=== PATIENT | female | born 1985 | race Caucasian/White ===

== ENCOUNTER 2018-06-26 11:55 | Emergency (ER) | payer OTHER, BC ==
[~2018-06-26] VITALS: Ht 170.2 cm; Wt 65.8 kg
[2018-06-26] MEDS ORDERED: PROBIOTIC1 EAC1 PO (12:17)
[2018-06-26] MEDS ORDERED: PRENATAL 19 TA1 EAC1 PO (12:17)
== END 2018-06-26 12:41 | disposition home or self-care (01) ==
LOC: ED 11:55
DX: S61.230A Puncture wound without foreign body of right index finger without damage to nail, initial encounter (principal); W46.0XXA Contact with hypodermic needle, initial encounter; Z88.5 Allergy status to narcotic agent; Z88.1 Allergy status to other antibiotic agents; Z79.899 Other long term (current) drug therapy
CPT/HCPCS: 36415; 84460; 86703; 86707; 86803; 87350; 99283

== ENCOUNTER 2019-03-02 10:40 | Inpatient (IN) | payer BC ==
[~2019-03-02] VITALS: Ht 170.2 cm; Wt 81.0 kg
--- OUTSIDE RECORDS SUMMARY | ~2019-03-02 | XMS | Encounter Summary ---
Demographics + + + | Address | [address] | | | [place] [address] | + + + | Home Phone | | + + + | Preferred Language | Unknown | + + + | Marital Status | | + + + | Pentecostalism Affiliation | Unknown | + + + | Race | Unknown | + + + | Ethnic Group | Unknown | + + + Author + + + | Author | [facility] | | | and [place] | + + + | Organization | [facility] | | | and [place] | + + + | Address | Unknown | + + + | Phone | Unavailable | + + + Support + + +---------+ + | Name | Relationship | Address | Phone | + + +---------+ + | Augusto Hinds | ECON | Unknown | | + + +---------+ + Care Team Providers + +------+ + | Care Pastoral Worker Name | Role | Phone | + +------+ + PCP | Unavailable | + +------+ + Encounter Details +--------+ + + + + | Date | Type | Department | Care Team | Description | +--------+ + + + + | 10/05/ | Hospital | [facility] | Camelia Olivarez | | | 2016 | Encounter | HOSPITAL PATHOLOGY | MD Destinee [address] | | | | | [address] | [facility] | | | | | [place] | [place] [address] | | | | | [address] | [phone] | | | | | [phone] | | | +--------+ + + + + Social History + +-------+ +--------+------+ | Tobacco Use | Types | Packs/Day | Years | Date | | | | | Used | | + +-------+ +--------+------+ | Never Assessed | | | | | + +-------+ +--------+------+ + + + | Sex Assigned at | Date Recorded | | | | + + + | Not on file | | + + + + + + + | Job Start Date | Occupation | Industry | + + + + | Not on file | Not on file | Not on file | + + + + + + + + | Travel History | Travel Start | Travel End | + + + + + + | No recent travel history available. | + + documented as of this encounter Plan of Treatment Not on filedocumented as of this encounter Visit Diagnoses Not on filedocumented in this encounter"
--- OUTSIDE RECORDS SUMMARY | ~2019-03-02 | XMS | Encounter Summary ---
Demographics + + + | Address | [address] | | | [place] [address] | + + + | Home Phone | | + + + | Preferred Language | Unknown | + + + | Marital Status | | + + + | Christianity Affiliation | Unknown | + + + | Race | Unknown | + + + | Ethnic Group | Unknown | + + + Author + + + | Author | [facility] | | | and [place] | + + + | Organization | [facility] | | | and [place] | [...] Team Providers + +------+ + | Care Cylinder Inspector Name | Role | Phone | + +------+ + PCP | Unavailable | + +------+ + Encounter Details +--------+ + + + + | Date | Type | Department | Care Team | Description | +--------+ + + + + | 07/28/ | Hospital | [facility] | Alanna Kilpatrick | | | 2017 | Encounter | HOSPITAL LABORATORY | DO [address] | | | | | [address] | [address] | | | | | [place], [place] | [place], [place] | | | | | [address] | [address] | | | | | [phone] | [phone] | | | | | | | | +--------+ + + + [...]
--- OUTSIDE RECORDS SUMMARY | ~2019-03-02 | XMS | Clinical Summary ---
Demographics + + + | Address | [address] | | | [place] [address] | + + + | Home Phone | | + + + | Preferred Language | Unknown | + + + | Marital Status | | + + + | Buddhism Affiliation | Unknown | + + + | Race | Unknown | + + + | Ethnic Group | Unknown | + + + Author + + + | Author | [facility] | | | and [place] | + + + | Organization | [facility] | | | and [place] [...] Team Providers + +------+ + | Care Deputy Clerk Of Superior Court Name | Role | Phone | + +------+ + | Marvin Johnston MD | PCP | | + +------+ + Allergies Not on File Medications Not on file Active Problems Not on file Immunizations + + + + | Name | Administration Dates | Next Due | + + + + | INFLUENZA PF | 01/11/2016 | | | QUAD(PED/ADOL/ADULT) | | | | ,PSKT or VIAL | | | + + + + | TDAP, (ADOL/ADULT) | 07/13/2016 | | + + + + Social History + [...] recent travel history available. | + + Last Filed Vital Signs + + + + + | Vital Sign | Reading | Time Taken | Comments | + + + + + | Blood Pressure | 109/68 | 11/28/2016 2:40 PM | | | | | PDT | | + + + + + | Pulse | 68 | 11/28/2016 2:40 PM | | | | | PDT | | + + + + + | Temperature | 36.4 C (97.6 F) | 10/05/2016 3:02 PM | | | | | PDT | | + + + + + | Respiratory Rate | 16 | 11/28/2016 2:40 PM | | | | | PDT | | + + + + + | Oxygen Saturation | 99% | 05/27/2015 3:25 PM | | | | | PDT | | + + + + + | Inhaled Oxygen | - | - | | | Concentration | | | | + + + + + | Weight | 71.3 kg (157 lb 2.3 | 11/28/2016 2:40 PM | | | | oz) | PDT | | + + + + + | Height | 170 cm (5' 6.93") | 11/28/2016 2:40 PM | | | | | PDT | | + + + + + | Body Mass Index | 24.66 | 11/28/2016 2:40 PM | | | | | PDT | | + + + + + Plan of Treatment + + + + + | Health Maintenance | Due Date | Last Done | Comments | + + + + + | Vaccine: Influenza | | 01/11/2016 | | | (#1) | 9 | | | + + + + + | Cervical Cancer | | 09/29/2015 | | | Screening (Pap) | 1 | | | + + + + + | Vaccine: | | 07/13/2016 | | | Dtap/Tdap/Td (2 - | 7 | | | | Td) | | | | + + + + + Results Not on filefrom Last 3 Months Insurance + +--------+ +--------+ +---------+------+ | Payer | Benefi | Subscriber | Effect | Phone | Address | Type | | | t Plan | ID | yaritza | | | | | | / | | Dates | | | | | | Group | | | | | | + +--------+ +--------+ +---------+------+ | [employer] | PACIFI | [id number] | | [phone] | | PPO | | | CSOURC | | 016-Pr | 2 | | | | | E | | esent | | | | | | FIRST | | | | | | | | CHOICE | | | | | | + +--------+ +--------+ +---------+------+ + +--------+ +--------+ + + | Guarantor Name | Accoun | Relation to | Date | Phone | Billing Address | | | t Type | Patient | of | | | | | | | | | | + +--------+ +--------+ + + | Ronit Hinds | Person | Self | [birth year] | [address] [place] | | | evangelist/Philippe | | 1986 | [phone] | [place] [address] | | | paras | | | 3 (Home) | | + +--------+ +--------+ + + Advance Directives + + + + + | Type | Date Recorded | Patient | Explanation | | | | Service Bar Cashier | | + + + + + | Power of | | | | | Miner | | | | + + + + + | Advance | 07/26/2017 4:12 | | | | Directive | PM | | | + + + + +
--- OUTSIDE RECORDS SUMMARY | ~2019-03-02 | XMS | Encounter Summary ---
Demographics + + + | Address | [address] | | | [place] [address] | + + + | Home Phone | | + + + | Preferred Language | Unknown | + + + | Marital Status | | + + + | Church Affiliation | Unknown | + + + | Race | Unknown | + + + | Ethnic Group | Unknown | + + + Author + + + | Author | [facility] | | | and [place] | + + + | Organization | [facility] | | | and [place] | [...] Team Providers + +------+ + | Care Package Dye Stand Loader Name | Role | Phone | + +------+ + PCP | Unavailable | + +------+ + Encounter Details +--------+ + + + + | Date | Type | Department | Care Team | Description | +--------+ + + + + | 03/10/ | Hospital | [facility] | Liyah Miranda MD | | | 2015 | Encounter | HOSPITAL LABORATORY | [address] | | | | | [address] | [place], [place] | | | | | [place], [place] | [address] | | | | | [address] | | | | | | [phone] | | | +--------+ + + + [...]
--- OUTSIDE RECORDS SUMMARY | ~2019-03-02 | XMS | Encounter Summary ---
Demographics + + + | Address | [address] | | | [place] [address] | + + + | Home Phone | | + + + | Preferred Language | Unknown | + + + | Marital Status | | + + + | Spiritism Affiliation | Unknown | + + + | Race | Unknown | + + + | Ethnic Group | Unknown | + + + Author + + + | Author | [facility] | | | and [place] | + + + | Organization | [facility] | | | and [place] [...] Team Providers + +------+ + | Care Fish Technologist Name | Role | Phone | + +------+ + PCP | Unavailable | + +------+ + Encounter Details +--------+ + + + + | Date | Type | Department | Care Team | Description | +--------+ + + + + | 06/12/ | Hospital | [facility] | Liyah Miranda MD | | | 2017 | Encounter | HOSPITAL OBSTETRICS | [address] | | | | | [address] | [place], [place] | | | | | [place], [place] | [address] | | | | | [address] | | | | | | [phone] | | | +--------+ + + + [...]
--- OUTSIDE RECORDS SUMMARY | ~2019-03-02 | XMS | Encounter Summary ---
Demographics + + + | Address | [address] | | | [place] [address] | + + + | Home Phone | | + + + | Preferred Language | Unknown | + + + | Marital Status | | + + + | Zoroastrian Affiliation | Unknown | + + + | Race | Unknown | + + + | Ethnic Group | Unknown | + + + Author + + + | Author | [facility] | | | and [place] | + + + | Organization | [facility] | | | and [place] [...] Team Providers + +------+ + | Care Merchandise Support Associate Name | Role | Phone | + +------+ + PCP | Unavailable | + +------+ + Encounter Details +--------+ + + + + | Date | Type | Department | Care Team | Description | +--------+ + + + + | 09/11/ | Hospital | [facility] | Liyah Miranda MD | | | 2017 | Encounter | HOSPITAL OBSTETRICS | [address] | | | | | [address] | [place], [place] | | | | | [place], [place] | [address] | | | | | [address] | | | | | | [phone] | | | +--------+ + + + [...]
--- OUTSIDE RECORDS SUMMARY | ~2019-03-02 | XMS | Encounter Summary ---
Demographics + + + | Address | [address] | | | [place] [address] | + + + | Home Phone | | + + + | Preferred Language | Unknown | + + + | Marital Status | | + + + | Christianity Affiliation | Unknown | + + + | Race | Unknown | + + + | Ethnic Group | Unknown | + + + Author + + + | Author | [facility] | | | and [place] | + + + | Organization | [facility] | | | and [place] | [...] Team Providers + +------+ + | Care Attorney Law Clerk Name | Role | Phone | + +------+ + | Marvin Johnston MD | PCP | | + +------+ + Reason for Referral Diagnostic/Screening (Routine) +--------+--------+ + + + + | Status | Reason | Specialty | Diagnoses / | Referred By | Referred To | | | | | Procedures | Contact | Contact | +--------+--------+ + + + + | Closed | | Radiology | Diagnoses | [facility] | [facility] | | | | | Adult | Marvin Sandoval MD | [address] | | | | | general | [address] | [address] | | | | | medical | [place], | [place], [place] | | | | | examination | [place] | [address] | | | | | Procedures | [address] | Phone: | | | | | ECHO | Phone: | [phone] | | | | | Complete | [phone] | Fax: | | | | | | Fax: | [phone] | | | | | | [phone] | | +--------+--------+ + + + + Reason for Visit Diagnostic/Screening (Routine) +--------+--------+ + + + + | Status | Reason | Specialty | Diagnoses / | Referred By | Referred To | | | | | Procedures | Contact | Contact | +--------+--------+ + + + + | Closed | | Radiology | Diagnoses | [facility] | [facility] | | | | | Adult | Marvin Sandoval MD | [address] | | | | | general | [address] | [address] | | | | | medical | [place], | [place], [place] | | | | | examination | [place] | [address] | | | | | Procedures | [address] | Phone: | | | | | ECHO | Phone: | [phone] | | | | | Complete | [phone] | Fax: | | | | | | Fax: | [phone] | | | | | | [phone] | | +--------+--------+ + + + + Encounter Details +--------+ + + + + | Date | Type | Department | Care Team | Description | +--------+ + + + + | 07/26/ | Hospital | [facility] | Marvin Johnston, | Adult general | | 2018 | Encounter | HOSPITAL ECHO [address] | medical examination | | | | [address] | [place] | | | | | [place] | [address] | | | | | [address] | [phone] | | | | | [phone] | | | +--------+ + + + [...] as of this encounter Plan of Treatment + + +--------+ + + | Name | Type | Priori | Associated Diagnoses | Date/Time | | | | ty | | | + + +--------+ + + | ECHO Complete | Echocardiog | Routin | Adult general | 07/26/2017 4:58 PM | | | berenice | e | medical examination | PDT | + + +--------+ + + + + +--------+ + + | Name | Type | Priori | Associated Diagnoses | Order Schedule | | | | ty | | | + + +--------+ + + | ECHO Complete | Echocardiog | Routin | Adult general | 1 Occurrences | | | berenice | e | medical examination | starting 07/26/2017 | | | | | | until 07/26/2017 | + + +--------+ + + documented as of this encounter Visit Diagnoses + + | Diagnosis | + + | Adult general medical examination Unspecified general medical examination | + + documented in this encounter"
--- OUTSIDE RECORDS SUMMARY | ~2019-03-02 | XMS | Encounter Summary ---
Demographics + + + | Address | [address] | | | [place] [address] | + + + | Home Phone | | + + + | Preferred Language | Unknown | + + + | Marital Status | | + + + | Judaism Affiliation | Unknown | + + + | Race | Unknown | + + + | Ethnic Group | Unknown | + + + Author + + + | Author | [facility] | | | and [place] | + + + | Organization | [facility] | | | and [place] | + + + | Address | Unknown | + + + | Phone | Unavailable | + + + Support + + +---------+ + | Name | Relationship | Address | Phone | + + +---------+ + | Augusto Hinds | ECON | Unknown | | + + +---------+ + Care Team Providers + +------+ + | Care Wildlife Management Professor Name | Role | Phone | + +------+ + PCP | Unavailable | + +------+ + Encounter Details +--------+ + + + + | Date | Type | Department | Care Team | Description | +--------+ + + + + | 05/29/ | Hospital | [facility] | Liyah Miranda MD | | | 2017 | Encounter | HOSPITAL OBSTETRICS | [address] | | | | | [address] | [place], [place] | | | | | [place], [place] | [address] | | | | | [address] | | | | | | [phone] | | | +--------+ + + + [...]
--- OUTSIDE RECORDS SUMMARY | ~2019-03-02 | XMS | Encounter Summary ---
Demographics + + + | Address | [address] | | | [place] [address] | + + + | Home Phone | | + + + | Preferred Language | Unknown | + + + | Marital Status | | + + + | Jew Affiliation | Unknown | + + + | Race | Unknown | + + + | Ethnic Group | Unknown | + + + Author + + + | Author | [facility] | | | and [place] | + + + | Organization | [facility] | | | and [place] [...] Team Providers + +------+ + | Care Manager Market Development Name | Role | Phone | + [...] | | | [place], [place] | [address] | | | | | [address] | | | | | | [phone] | | | +--------+ + + + [...]
--- OUTSIDE RECORDS SUMMARY | ~2019-03-02 | XMS | Encounter Summary ---
Demographics + + + | Address | [address] | | | [place] [address] | + + + | Home Phone | | + + + | Preferred Language | Unknown | + + + | Marital Status | | + + + | Quaker Affiliation | Unknown | + + + | Race | Unknown | + + + | Ethnic Group | Unknown | + + + Author + + + | Author | [facility] | | | and [place] | + + + | Organization | [facility] | | | and [...] Team Providers + +------+ + | Care Target Trimmer Name | Role | Phone | + +------+ + PCP | Unavailable | + +------+ + Encounter Details +--------+ + + + + | Date | Type | Department | Care Team | Description | +--------+ + + + + | 01/10/ | Hospital | [facility] | Liyah Miranda MD | | | 2016 | Encounter | HOSPITAL OBSTETRICS | [address] | | | | | [address] | [place], [place] | | | | | [place], [place] | [address] | | | | | [address] | | | | | | [phone] | | | +--------+ + + + [...]
--- OUTSIDE RECORDS SUMMARY | ~2019-03-02 | XMS | Encounter Summary ---
Demographics + + + | Address | [address] | | | [place] [address] | + + + | Home Phone | | + + + | Preferred Language | Unknown | + + + | Marital Status | | + + + | Anabaptist Affiliation | Unknown | + + + | Race | Unknown | + + + | Ethnic Group | Unknown | + + + Author + + + | Author | [facility] | | | and [place] | + + + | Organization | [facility] and [facility] | | | and [place] | [...] Team Providers + +------+ + | Care Associate Professor Of Biblical Studies Name | Role | Phone | + +------+ + PCP | Unavailable | + +------+ + Encounter Details +--------+ + + + + | Date | Type | Department | Care Team | Description | +--------+ + + + + | 08/03/ | Hospital | [facility] | Liyah Miranda MD | | | 2016 | Encounter | HOSPITAL OBSTETRICS | [address] | | | | | [address] | [place], [place] | | | | | [place], [place] | [address] | | | | | [address] | | | | | | [phone] | | | +--------+ + + + [...]
--- OUTSIDE RECORDS SUMMARY | ~2019-03-02 | XMS | Encounter Summary ---
Demographics + + + | Address | [address] | | | [place] [address] | + + + | Home Phone | | + + + | Preferred Language | Unknown | + + + | Marital Status | | + + + | Buddhism Affiliation | Unknown | + + + | Race | Unknown | + + + | Ethnic Group | Unknown | + + + Author + + + | Author | [facility] | | | and [place] | + + + | Organization | [facility] | | | and [place] [...] Team Providers + +------+ + | Care Precision Machine Operator Name | Role | Phone | + +------+ + PCP | Unavailable | + +------+ + Encounter Details +--------+ + + + + | Date | Type | Department | Care Team | Description | +--------+ + + + + | 09/28/ | Hospital | [facility] | Liyah Miranda MD | | | 2016 | Encounter | HOSPITAL OBSTETRICS | [address] | | | | | [address] | [place], [place] | | | | | [place], [place] | [address] | | | | | [address] | | | | | | [phone] | | | +--------+ + + + [...]
--- OUTSIDE RECORDS SUMMARY | ~2019-03-02 | XMS | Encounter Summary ---
Demographics + + + | Address | [address] | | | [place] [address] | + + + | Home Phone | | + + + | Preferred Language | Unknown | + + + | Marital Status | | + + + | Nondenominational Affiliation | Unknown | + + + | Race | Unknown | + + + | Ethnic Group | Unknown | + + + Author + + + | Author | [facility] | | | and [place] | + + + | Organization | [facility] | | | and [place] [...] Team Providers + +------+ + | Care Tank House Supervisor Name | Role | Phone | + +------+ + PCP | Unavailable | + +------+ + Encounter Details +--------+ + + + + | Date | Type | Department | Care Team | Description | +--------+ + + + + | 07/13/ | Hospital | [facility] | Liyah Miranda MD | | | 2017 | Encounter | HOSPITAL OBSTETRICS | [address] | | | | | [address] | [place], [place] | | | | | [place], [place] | [address] | | | | | [address] | | | | | | [phone] | | | +--------+ + + + [...]
--- OUTSIDE RECORDS SUMMARY | ~2019-03-02 | XMS | Encounter Summary ---
Demographics + + + | Address | [address] | | | [place] [address] | + + + | Home Phone | | + + + | Preferred Language | Unknown | + + + | Marital Status | | + + + | Confucianism Affiliation | Unknown | + + + | Race | Unknown | + + + | Ethnic Group | Unknown | + + + Author + + + | Author | [facility] | | | and [place] | + + + | Organization | [facility] [...] Team Providers + +------+ + | Care Natural Sciences Professor Name | Role | Phone | + +------+ + PCP | Unavailable | + +------+ + Encounter Details +--------+ + + + + | Date | Type | Department | Care Team | Description | +--------+ + + + + | 09/28/ | Orders Only | [facility] | Liyah Miranda MD | | | 2016 | | [facility] | [address] | | | | | CLIN[address] | [place], [place] | | | | | [address] [place], | [id number] | | | | | [place] [address] | | | | | | [phone] | | | +--------+ + + + [...] Not on filedocumented as of this encounter Procedures + +--------+ + + + | Procedure Name | Priori | Date/Time | Associated Diagnosis | Comments | | | ty | | | | + +--------+ + + + | PAP, LB REFLEX HPV | Routin | 09/29/2015 | | Results for this | | ALL PTH | e | 5:02 PM | | procedure are in the | | | | PDT | | results section. | + +--------+ + + + documented in this encounter Results Pap, Lb Rflx HPV All Pth (09/29/2015 5:02 PM PDT) + + | Specimen | + + | | + + + + + | Narrative | Performed At | + + + | . : 00:00am .T: BMP Cytology Report .PV: KNI Status: F | EXTERNAL LAB | | Ordering Provider Liyah MIRANDA M.D. @W[facility]X CC Provider | | | LG - BMP [facility] /W Collected Date 20150929 | | | Received Date 20150930 Completed Date 20151001 | | | Specimen Source: Liquid base - cervical Number of Slides: | | | 10 LMP Date: 20150916 Menstrual Status Mid Cycle | | | Clinical History: Prev ABN Prev Tx | | | Cytopathologic Diagnosis: Negative for Intraepithelial Lesion or | | | Malignancy Specimen Adequacy: Satisfactory for evaluation. | | | Transformation zone component present Comment: Repeat | | | smear at your discretion. Specimen processed successfully by | | | [employer], [employer], [facility]. | | | Disclaimer The pap smear is not a diagnostic procedure and should | | | not be used as the sole means to detect cervical cancer. It is only a | | | screening procedure to aid in the detection of cervical cancer. Both | | | false-negative and false-positive results have been experienced. | | | User 1 Lab Ordering Provider: Ruben, | | | Liyah Alejo M.D. @W[facility], [facility] | | | # SIGNED BY LIYAH MIRANDA MD, ([facility])10/04/2015 07:00PM | | + + + + +---------+ + + | Performing | Address | City/State/Zipcode | Phone Number | | Organization | | | | + +---------+ + + | EXTERNAL LAB | | | | + +---------+ + + documented in this encounter Visit Diagnoses Not on filedocumented in this encounter"
--- OUTSIDE RECORDS SUMMARY | ~2019-03-02 | XMS | Encounter Summary ---
Demographics + + + | Address | [address] | | | [place] [address] | + + + | Home Phone | | + + + | Preferred Language | Unknown | + + + | Marital Status | | + + + | Caodaism Affiliation | Unknown | + + + | Race | Unknown | + + + | Ethnic Group | Unknown | + + + Author + + + | Author | [facility] | | | and [place] | + + + | Organization | [facility] | | | and [...] Team Providers + +------+ + | Care Pbx Inspector Name | Role | Phone | + +------+ + PCP | Unavailable | + +------+ + Encounter Details +--------+ + + + + | Date | Type | Department | Care Team | Description | +--------+ + + + + | 08/11/ | Hospital | [facility] | Liyah Miranda MD | | | 2017 | Encounter | [facility] | [address] | | | | | [address] | [place], [place] | | | | | [place], [place] | [address] | | | | | [address] | | | | | | [phone] | | | +--------+ + + + [...]
--- OUTSIDE RECORDS SUMMARY | ~2019-03-02 | XMS | Encounter Summary ---
Demographics + + + | Address | [address] | | | [place] [address] | + + + | Home Phone | | + + + | Preferred Language | Unknown | + + + | Marital Status | | + + + | Yarsani Affiliation | Unknown | + + + | Race | Unknown | + + + | Ethnic Group | Unknown | + + + Author + + + | Author | [facility] | | | and [place] | + + + | Organization | [facility] | | | and [...] Team Providers + +------+ + | Care Chipper Machine Operator Name | Role | Phone | + +------+ + PCP | Unavailable | + +------+ + Encounter Details +--------+ + + + + | Date | Type | Department | Care Team | Description | +--------+ + + + + | 02/08/ | Hospital | [facility] | Liyah Miranda MD | | | 2015 | Encounter | [facility]PITAL [facility] | [address] | | | | | [address] | [place], [place] | | | | | [place], [place] | [address] | | | | | [address] | | | | | | [phone] | | | +--------+ + + + [...]
--- OUTSIDE RECORDS SUMMARY | ~2019-03-02 | XMS | Encounter Summary ---
Demographics + + + | Address | [address] | | | [place] [address] | + + + | Home Phone | | + + + | Preferred Language | Unknown | + + + | Marital Status | | + + + | Scientologist Affiliation | Unknown | + + + | Race | Unknown | + + + | Ethnic Group | Unknown | + + + Author + + + | Author | [facility] | | | and [place] | + + + | Organization | [facility] | | | and [place] [...] Providers + +------+ + | Care Wildlife Biologist Name | Role | Phone | + +------+ + PCP | Unavailable | + +------+ + Encounter Details +--------+ + + + + | Date | Type | Department | Care Team | Description | +--------+ + + + + | 10/12/ | Hospital | [facility] | Nikki, | | | 2017 | Encounter | [facility] | Brunilda Walker NP [address] | | | | | [address] | [address] | | | | | [place], [place] | [place], [place] | | | | | [address] | [address] | | | | | [phone] | [phone] | | | | | | | [...]
--- OUTSIDE RECORDS SUMMARY | ~2019-03-02 | XMS | Encounter Summary ---
Demographics + + + | Address | [address] | | | [place] [address] | + + + | Home Phone | | + + + | Preferred Language | Unknown | + + + | Marital Status | | + + + | Protestant Affiliation | Unknown | + + + | Race | Unknown | + + + | Ethnic Group | Unknown | + + + Author + + + | Author | [facility] | | | and [place] | + + + | Organization | [facility] | | | and [place] [...] Team Providers + +------+ + | Care Irrigation Technician Name | Role | Phone | + +------+ + PCP | Unavailable | + +------+ + Encounter Details +--------+ + + + + | Date | Type | Department | Care Team | Description | +--------+ + + + + | 08/17/ | Hospital | [facility] | Liyha Miranda MD | | | 2017 | Encounter | [facility]PITAL [facility] | [address] | | | | | [address] | [place], [place] | | | | | [place], [place] | [address] | | | | | [address] | | | | | | [phone] | | | +--------+ + + + [...]
--- OUTSIDE RECORDS SUMMARY | ~2019-03-02 | XMS | Encounter Summary ---
Demographics + + + | Address | [address] | | | [place] [address] | + + + | Home Phone | | + + + | Preferred Language | Unknown | + + + | Marital Status | | + + + | Scientologist Affiliation | Unknown | + + + | Race | Unknown | + + + | Ethnic Group | Unknown | + + + Author + + + | Author | [facility] | | | and [place] | + + + | Organization | [facility] | | | and [place] [...] Team Providers + +------+ + | Care Quill Buncher And Sorter Name | Role | Phone | + +------+ + PCP | Unavailable | + +------+ + Encounter Details +--------+ + + + + | Date | Type | Department | Care Team | Description | +--------+ + + + + | 08/19/ | Hospital | [facility] | Alanna Kilpatrick | | | 2017 | Encounter | [facility] | DO Steffanie [address] | | | | | [address] | [address] | | | | | [address] [place], [place] | [place], [place] | | | | | [address] | [address] | | | | | [phone] | [phone] | | | | | | | [...]
--- OUTSIDE RECORDS SUMMARY | ~2019-03-02 | XMS | Encounter Summary ---
Demographics + + + | Address | [address] | | | [place] [address] | + + + | Home Phone | | + + + | Preferred Language | Unknown | + + + | Marital Status | | + + + | Jain Affiliation | Unknown | + + + | Race | Unknown | + + + | Ethnic Group | Unknown | + + + Author + + + | Author | [facility] | | | and [place] | + + + | Organization | [facility] | | | and [place] [...] Team Providers + +------+ + | Care Director Client Services Name | Role | Phone | + +------+ + PCP | Unavailable | + +------+ + Encounter Details +--------+ + + + + | Date | Type | Department | Care Team | Description | +--------+ + + + + | 04/10/ | Hospital | [facility] | Liyah Miranda MD | | | 2017 | Encounter | H[facility]PITAL [facility]ST[facility] | [address] | | | | | [address] | [place], [place] | | | | | [place], [place] | [address] | | | | | [address] | | | | | | [phone] | | | +--------+ + + + [...]
--- OUTSIDE RECORDS SUMMARY | ~2019-03-02 | XMS | Encounter Summary ---
Demographics + + + | Address | [address] | | | [place] [address] | + + + | Home Phone | | + + + | Preferred Language | Unknown | + + + | Marital Status | | + + + | Jainism Affiliation | Unknown | + + + | Race | Unknown | + + + | Ethnic Group | Unknown | + + + Author + + + | Author | [facility] | | | and [place] | + + + | Organization | [facility] | | | and [place] [...] Team Providers + +------+ + | Care Phytopathology Teacher Name | Role | Phone | + +------+ + PCP | Unavailable | + +------+ + Encounter Details +--------+ + + + + | Date | Type | Department | Care Team | Description | +--------+ + + + + | 03/29/ | Hospital | [facility] | Marvin Johnston, | | | 2015 | Encounter | HOSPITAL XRAY [address] | | | | | [address] | [place] | | | | | [place] | [address] | | | | | [address] | [phone] | | | | | [phone] | | | +--------+ + + + [...] | + +--------+ + + + | XR HIP LEFT 2-3 | Routin | 03/29/2015 | | Results for this | | VIEWS | e | 10:54 AM | | procedure are in the | | | | PST | | results section. | + +--------+ + + + | XR SHOULDER LEFT 2 + | Routin | 03/29/2015 | | Results for this | | VW | e | 10:54 AM | | procedure are in the | | | | PST | | results section. | + +--------+ + + + | XR KNEE LEFT 3 VW | Routin | 03/29/2015 | | Results for this | | | e | 10:54 AM | | procedure are in the | | | | PST | | results section. | + +--------+ + + + | XR PELVIS 1 OR 2 VW | Routin | 03/29/2015 | | Results for this | | | e | 10:54 AM | | procedure are in the | | | | PST | | results section. | + +--------+ + + + | XR MANDIBLE 4 + VW | Routin | 03/29/2015 | | Results for this | | | e | 10:54 AM | | procedure are in the | | | | PST | | results section. | + +--------+ + + + documented in this encounter Results XR Mandible 4 + Vw (03/29/2015 10:54 AM PST) + + | Specimen | + + | | + + + + + | Narrative | Performed At | + + + | ORIGINAL MANDIBLE FOUR VIEWS: CLINICAL STATEMENT: | | | Pain and trauma. REPORT: No fracture or dislocation is seen. No | | | lytic or blastic bone lesions are evident. IMPRESSION: No acute | | | finding involving the mandible. If there is continued concern for | | | acute process, CT is recommended. JOB: [id number] | | | Read By: VENTURA WEEMS MD Released By: VENTURA WEEMS MD | | | Date: 03/29/2015 14:41 | | + + + + + | Procedure Note | + + | Ramón, Rad Results In - 01/17/2017 9:27 PM PST ORIGINAL MANDIBLE FOUR VIEWS: | | CLINICAL STATEMENT:Pain and trauma. REPORT:No fracture or dislocation is seen. No lytic | | or blastic bone lesions are evident. IMPRESSION:No acute finding involving the | | mandible. If there is continued concern for acute process, CT is recommended. D: | | 03/29/2015 JOB: [id number] Read By: VENTURA WEEMS MD Released By: VENTURA WEEMS, | | MDDate: 03/29/2015 14:41 | |Pain and trauma. | | | |REPORT: | |No fracture or dislocation is seen. No lytic or blastic bone lesions are evident. | | | |IMPRESSION: | |No acute finding involving the mandible. If there is continued concern for acute process, CT is recommended. | | | | JOB: [id number] | | | |Read By: VENTURA WEEMS MD | | | |Released By: VENTURA WEEMS MD | |Date: 03/29/2015 14:41 | | | | | + + XR Shoulder Left 2 + Vw (03/29/2015 10:54 AM PST) + + | Specimen | + + | | + + + + + | Narrative | Performed At | + + + | ORIGINAL SHOULDER 3 VIEW LEFT: INDICATION: Pain. | | | Trauma. COMPARISON: No comparison. REPORT: No fracture or | | | dislocation is seen. No pneumothorax is seen on the left. Incidental | | | note of a spina bifida occulta C7 is made. This is a normal | | | variant. The acromioclavicular joint is not widened. IMPRESSION: | | | No acute fracture or dislocation identified left shoulder. D: | | | 03/29/2015 JOB: [id number] Read By: VENTURA WEEMS MD | | | Released By: VENTURA WEEMS MD Date: 03/29/2015 14:41 | | + + + + + | Procedure Note | + + | Ramón, Rad Results In - 01/17/2017 9:27 PM PST ORIGINAL SHOULDER 3 VIEW LEFT: | | INDICATION:Pain. Trauma. COMPARISON:No comparison. REPORT:No fracture or dislocation is | | seen. No pneumothorax is seen on the left. Incidental note of a spina bifida occulta | | C7 is made. This is a normal variant. The acromioclavicular joint is not widened. | | IMPRESSION:No acute fracture or dislocation identified left shoulder. | | JOB: [id number] Read By: VENTURA WEEMS MD Released By: KARUNA MOLINAate: | | 03/29/2015 14:41 | | | |COMPARISON: | |No comparison. | | | |REPORT: | |No fracture or dislocation is seen. No pneumothorax is seen on the left. Incidental note o f a spina bifida occulta C7 is made. This is a normal variant. The acromioclavicular joint is not widened. | | | |IMPRESSION: | |No acute fracture or dislocation identified left shoulder. | | | | JOB: [id number] | | | |Read By: VENTURA WEEMS MD | | | |Released By: VENTURA WEEMS MD | |Date: 03/29/2015 14:41 | | | | | + + XR Pelvis 1 or 2 Vw (03/29/2015 10:54 AM PST) + + | Specimen | + + | | + + + + + | Narrative | Performed At | + + + | ORIGINAL PELVIS ONE VIEW: INDICATION: Pain. | | | Trauma. COMPARISON: No comparison. REPORT: No fracture or | | | dislocation is seen. An IUD device projects over the pelvic inlet. | | | The syntheses pubis and sacroiliac joints are not widened. 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 Spina bifida occulta is also noted at this vertebra. | | | IMPRESSION: 1. No acute finding identified. 2. | | | Transitional vertebra lowest ptw-oly-ohtbvsb vertebra which can be | | | associated with pain. JOB: [id number] Read By: | | | VENTURA WEEMS MD Released By: VENTURA WEEMS MD Date: | | | 03/29/2015 14:41 | | + + + + ---------+ | Procedure Note | + ---------+ | Ramón Rad Results In - 01/17/2017 9:27 PM PST ORIGINAL PELVIS ONE VIEW: | | INDICATION:Pain. Trauma. COMPARISON:No comparison. REPORT:No fracture or dislocation is | | seen. An IUD device projects over the pelvic inlet. The syntheses pubis and sacroiliac | | joints are not widened. 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 | | Spina bifida occulta is also noted at this vertebra. IMPRESSION:1. No acute finding | | identified.2. Transitional vertebra lowest sbh-qgg-esychbq vertebra which can be | | associated with pain. JOB: [id number] Read By: VENTURA WEEMS MD | | Released By: VENTURA WEEMS MDDate: 03/29/2015 14:41 | |No comparison. | | | |REPORT: | |No fracture or dislocation is seen. An IUD device projects over the pelvic inlet. The synt heses pubis and sacroiliac joints are not widened. 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 Spina bifida occulta is also noted at this v ertebra. | | | |IMPRESSION: | |1. No acute finding identified. | |2. Transitional vertebra lowest xes-btc-womtqjw vertebra which can be associated with pa in. | | | | JOB: [id number] | | | |Read By: VENTURA WEEMS MD | | | |Released By: VENTURA WEEMS MD | |Date: 03/29/2015 14:41 | | | | | + ---------+ XR Hip Left 2-3 Views (03/29/2015 10:54 AM PST) + + | Specimen | + + | | + + + + + | Narrative | Performed At | + + + | ORIGINAL HIP 2 VIEW LEFT: CLINICAL STATEMENT: | | | Pain. Trauma. REPORT: No fracture or dislocation is seen. The | | | hip joint space is maintained. An IUD device projects over the | | | pelvic inlet. IMPRESSION: No acute finding identified left hip. | | | JOB: [id number] Read By: VENTURA WEEMS MD | | | Released By: VENTURA WEEMS MD Date: 03/29/2015 14:41 | | + + + + + | Procedure Note | + + | Ramón, Rad Results In - 01/17/2017 9:27 PM PST ORIGINAL HIP 2 VIEW LEFT: | | CLINICAL STATEMENT:Pain. Trauma. REPORT:No fracture or dislocation is seen. The hip | | joint space is maintained. An IUD device projects over the pelvic inlet. IMPRESSION:No | | acute finding identified left hip. JOB: [id number] Read By: VENTURA Gore | | MD FAUSTINA Released By: VENTURA WEEMS, MDDate: 03/29/2015 14:41 | |CLINICAL STATEMENT: | |Pain. Trauma. | | | |REPORT: | |No fracture or dislocation is seen. The hip joint space is maintained. An IUD device pro jects over the pelvic inlet. | | | |IMPRESSION: | |No acute finding identified left hip. | | | | JOB: [id number] | | | |Read By: VENTURA WEEMS MD | | | |Released By: VENTURA WEEMS MD | |Date: 03/29/2015 14:41 | | | | | + + XR Knee Left 3 Vw (03/29/2015 10:54 AM PST) + + | Specimen | + + | | + + + + + | Narrative | Performed At | + + + | Clinical Indication: Reason for study: pain trauma . | | | Findings: The alignment of the knee joints is normal. No fracture | | | or focal bone lesion is visible in the bony structures. Joint space | | | widths are well preserved in the medial and lateral compartments, | | | and in the patellofemoral joint. No chondrocalcinosis is visible. | | | No joint effusion, loose intraarticular fragment, erosion, or | | | degenerative change is evident. Summary: No evidence of acute | | | radiographic abnormality. Read By: VENTURA WEEMS MD Date: | | | 03/29/2015 11:56 | | + + + + + | Procedure Note | + + | Ramón, Rad Results In - 01/17/2017 9:27 PM PST | | Clinical Indication: Reason for study: | | pain trauma | | | | . | | | | Findings: The alignment of the knee joints is normal. No fracture or focal | | bone lesion is visible in the bony structures. Joint space widths are well | | preserved in the medial and lateral compartments, and in the patellofemoral | | joint. No chondrocalcinosis is visible. No joint effusion, loose | | intraarticular fragment, erosion, or degenerative change is evident. | | | | Summary: No evidence of acute radiographic abnormality. | | | | Read By: VENTURA WEEMS MD | | Date: 03/29/2015 11:56 | | | + + documented in this encounter Visit Diagnoses Not on filedocumented in this encounter"
--- OUTSIDE RECORDS SUMMARY | ~2019-03-02 | XMS | Encounter Summary ---
Demographics + + + | Address | [address] | | | [place] [address] | + + + | Home Phone | | + + + | Preferred Language | Unknown | + + + | Marital Status | | + + + | Bahai Affiliation | Unknown | + + + | Race | Unknown | + + + | Ethnic Group | Unknown | + + + Author + + + | Author | [facility] | | | and [place] | + + + | Organization | [facility] | | | and [...] Team Providers + +------+ + | Care Electrician Supervisor Airplane Name | Role | Phone | + +------+ + PCP | Unavailable | + +------+ + Encounter Details +--------+ + + + + | Date | Type | Department | Care Team | Description | +--------+ + + + + | 08/19/ | Hospital | [facility] | Sunny Durant | | | 2017 | Encounter | HOSPITAL LABOR AND | MD [address] | | | | | [address] | [address] | | | | | [address] [place], [place] | [place], [place] | | | | | [address] | [address] | | | | | [phone] | [phone] | | | | | | | | | | | | Alanna Kilpatrick | | | | | | DO [address] | | | | | | [address] | | | | | | [place] | | | | | | [address] | | | | | | [phone] | | | | | | | [...] | + +--------+ + + + | HEMOGLOBIN AND | Routin | 08/20/2016 | | Results for this | | HEMATOCRIT | e | 5:00 AM | | procedure are in the | | | | PDT | | results section. | + +--------+ + + + | CBC W/AUTO | Routin | 08/19/2016 | | Results for this | | DIFFERENTIAL | e | 6:02 AM | | procedure are in the | | | | PDT | | results section. | + +--------+ + + + documented in this encounter Results Hemoglobin and Hematocrit (08/20/2016 5:00 AM PDT) + +-------+ + + + | Component | Value | Ref Range | Performed | Pathologist | | | | | At | Signature | + +-------+ + + + | HGB, | 10.5 | 12.4 - 15.7 | EXTERNAL | | | External | | g/dL | LAB | | + +-------+ + + + | HCT, | 30.5 | 37.7 - 47.0 % | EXTERNAL | | | External | | | LAB | | + +-------+ + + + | MCHC | 34.4 | 32.0 - 36.9 | EXTERNAL | | | | | g/dL | LAB | | + +-------+ + + + + + | Specimen | + + | | + + + +---------+ + + | Performing | Address | City/State/Zipcode | Phone Number | | Organization | | | | + +---------+ + + | EXTERNAL LAB | | | | + +---------+ + + CBC w/ Auto Differential (08/19/2016 6:02 AM PDT) + +-------+ + + + | Component | Value | Ref Range | Performed | Pathologist | | | | | At | Signature | + +-------+ + + + | WBC | 10.2 | 4.3 - 10.4 | EXTERNAL | | | | | 1000/mm3 | LAB | | + +-------+ + + + | RBC | 3.71 | 4.12 - 5.30 | EXTERNAL | | | | | mil/mm3 | LAB | | + +-------+ + + + | HGB, | 12.6 | 12.4 - 15.7 | EXTERNAL | | | External | | g/dL | LAB | | + +-------+ + + + | HCT, | 36.1 | 37.7 - 47.0 % | EXTERNAL | | | External | | | LAB | | + +-------+ + + + | MCV | 97 | 82 - 97 fl | EXTERNAL | | | | | | LAB | | + +-------+ + + + | MCH | 34 | 27.1 - 32.3 pg | EXTERNAL | | | | | | LAB | | + +-------+ + + + | MCHC | 34.9 | 32.0 - 36.9 | EXTERNAL | | | | | g/dL | LAB | | + +-------+ + + + | RDW-CV | 12.2 | <=17.0 % | EXTERNAL | | | | | | LAB | | + +-------+ + + + | RDW-SD | 43.4 | 34.0 - 57.0 fL | EXTERNAL | | | | | | LAB | | + +-------+ + + + | Platelet | 139 | 150 - 450 | EXTERNAL | | | Count | | 1000/mm3 | LAB | | | Plasma | | | | | + +-------+ + + + | MPV | 10.5 | 9.4 - 12.3 FL | EXTERNAL | | | | | | LAB | | + +-------+ + + + | % Segmented | 75.8 | 42.0 - 76.0 % | EXTERNAL | | | | | | LAB | | | Neutrophils | | | | | + +-------+ + + + | % | 15.9 | 20.0 - 40.0 % | EXTERNAL | | | Lymphocytes | | | LAB | | + +-------+ + + + | % Monocytes | 6 | 3.0 - 13.0 % | EXTERNAL | | | | | | LAB | | + +-------+ + + + | % | 1.1 | 0.0 - 7.0 % | EXTERNAL | | | Eosinophils | | | LAB | | + +-------+ + + + | % Basophils | 0.4 | 0.0 - 2.0 % | EXTERNAL | | | | | | LAB | | + +-------+ + + + | % Immature | 0.8 | 0.0 - 0.5 % | EXTERNAL | | | Granulocyte | | | LAB | | | s | | | | | + +-------+ + + + | % nRBC | 0 | 0.0 - 0.2 /100 | EXTERNAL | | | | | WBC | LAB | | + +-------+ + + + | Absolute | 7.7 | 2.50 - 8.50 | EXTERNAL | | | Neutrophils | | 1000/mm3 | LAB | | + +-------+ + + + | Absolute | 1.61 | 1.00 - 3.80 | EXTERNAL | | | Lymphocytes | | 1000/mm3 | LAB | | + +-------+ + + + | Absolute | 0.61 | 0.00 - 0.80 | EXTERNAL | | | Monocytes | | 1000/mm3 | LAB | | + +-------+ + + + | Absolute | 0.11 | 0.00 - 0.70 | EXTERNAL | | | Eosinophils | | 1000/mm3 | LAB | | + +-------+ + + + | Absolute | 0.04 | 0.00 - 0.20 | EXTERNAL | | | Basophils | | 1000/mm3 | LAB | | + +-------+ + + + | Absolute | 0.08 | 0.00 - 0.15 | EXTERNAL | | | Immature | | 1000/mm3 | LAB | | | Granulocyte | | | | | | s | | | | | + +-------+ + + + | Absolute | 0.01 | 0.00 - 0.01 | EXTERNAL | | | nRBC | | 1000/mm3 | LAB | | + +-------+ + + + | SLIDE | NO | | EXTERNAL | | | REVIEWED | | | LAB | | + +-------+ + + + + + | Specimen | + + | | + + + +---------+ + + | Performing | Address | City/State/Zipcode | Phone Number | | Organization | | | | + +---------+ + + | EXTERNAL LAB | | | | + +---------+ + + documented in this encounter Visit Diagnoses Not on filedocumented in this encounter"
--- OUTSIDE RECORDS SUMMARY | ~2019-03-02 | XMS | Encounter Summary ---
Demographics + + + | Address | [address] [place] | | | [place] [address] | + + + | Home Phone | | + + + | Preferred Language | Unknown | + + + | Marital Status | | + + + | Bahai Affiliation | Unknown | + + + | Race | Unknown | + + + | Ethnic Group | Unknown | + + + Author + + + | Author | [facility] | | | and [place] | + + + | Organization | [facility] | | | and [place] [...] Team Providers + +------+ + | Care Digitizer Operator Name | Role | Phone | + +------+ + PCP | Unavailable | + +------+ + Encounter Details +--------+ + + + + | Date | Type | Department | Care Team | Description | +--------+ + + + + | 07/28/ | Hospital | [facility] | Alanna Kilpatrick | | | 2017 | Encounter | HOSPITAL OBSTETRICS | DO [address] | | | | | [address] | [address] | | | | | [place], [place] | [place], [place] | | | | | [address] | [address] | | | | | [phone] | [phone] | | | | | | | [...]
--- OUTSIDE RECORDS SUMMARY | ~2019-03-02 | XMS | Encounter Summary ---
Demographics + + + | Address | [address] | | | [place] [address] | + + + | Home Phone | | + + + | Preferred Language | Unknown | + + + | Marital Status | | + + + | Scientologist Affiliation | Unknown | + + + | Race | Unknown | + + + | Ethnic Group | Unknown | + + + Author + + + | Author | [facility] | | | and [place] | + + + | Organization | [facility] | | | and [...] Providers + +------+ + | Care Director Corporate Security Name | Role | Phone | + +------+ + PCP | Unavailable | + +------+ + Encounter Details +--------+ + + + + | Date | Type | Department | Care Team | Description | +--------+ + + + + | 10/05/ | Orders Only | [facility] | Liyah Miranda MD | | | 2017 | | [facility] | [address] | | | | | CLINIC [address] | [place], [place] | | | | | [address] [place], | [id number] | | | | | [place] [address] | | | | | | [phone] | | | +--------+ + + + [...] | + +--------+ + + + | TISSUE EXAM | Routin | 10/05/2016 | | Results for this | | | e | 4:30 PM | | procedure are in the | | | | PDT | | results section. | + +--------+ + + + documented in this encounter Results TISSUE EXAM (10/05/2016 4:30 PM PDT) + + | Specimen | + + | | + + + + + | Narrative | Performed At | + + + | .D: 17 : 00:00am .T: MANUEL Surgical Report .PV: BUFFY Status: F | EXTERNAL LAB | | Ordering Provider Liyah MIRANDA M.D. @W/-X CC Provider | | | - [facility] /W, [facility], [employer] /F | | | Collected Date 20161005 Received Date [id number] | | | Completed Date [id number] Specimens: Right labia mole | | | Pre-Op Diagnosis: None Given Post-Op Diagnosis: None | | | Given Chart/ID#: [id number] Diagnosis: Right labia, | | | biopsy: Squamous hyperplasia with mild lymphocytic | | | inflammation. No neoplasm identified. Electronically | | | Signed By: Electronically Signed: Camelia Olivarez M.D. | | | Clinical Brief: LMP: 11/12/15 Hormones: 0 Gross | | | Description: Received in formalin in a container labeled | | | ""Ronit Hinds, right labial mole" is an unoriented skin biopsy, | | | measuring 0.5 cm in diameter x 0.2 cm in depth. On the skin surface | | | there is a pigmented nodule/papule measuring 0.4 cm in diameter. The | | | base of the specimen is inked black and it is entirely submitted in 1 | | | cassette. The gross examination is performed at [facility] | | [facility], [address] [place] [address]. Microscopic | | | Examination: Microscopic examination by NRT. Stain quality is | | | adequate. This case is reviewed by Lore De Paz M.D., who concurs. | | | User 1 Lab Ordering Provider: | | | Liyah Miranda M.D. @W/-, [facility] Accession: | | | [id number] # SIGNED BY LIYAH MIRANDA MD, Dr. (KNI)10/18/2016 | | | 11:53AM | | + + + + +---------+ + + | Performing | Address | City/State[facility] | Phone Number | | Organization | | | | + +---------+ + + | EXTERNAL LAB | | | | + +---------+ + + documented in this encounter Visit Diagnoses Not on filedocumented in this encounter
--- OUTSIDE RECORDS SUMMARY | ~2019-03-02 | XMS | Encounter Summary ---
Demographics + + + | Address | [address] | | | [place] [address] | + + + | Home Phone | | + + + | Preferred Language | Unknown | + + + | Marital Status | | + + + | Confucianist Affiliation | Unknown | + + + | Race | Unknown | + + + | Ethnic Group | Unknown | + + + Author + + + | Author | [facility] | | | and [place] | + + + | Organization | [facility] | | | and [place] [...] Team Providers + +------+ + | Care Escalator Installer Name | Role | Phone | + +------+ + PCP | Unavailable | + +------+ + Encounter Details +--------+ + + + + | Date | Type | Department | Care Team | Description | +--------+ + + + + | 05/08/ | Hospital | [facility] | Liyah Miranda MD | | | 2017 | Encounter | HOSPITAL OBSTETRICS | [address] | | | | | [address] | [place], [place] | | | | | [place], [place] | [address] | | | | | [address] | | | | | | [phone] | | | +--------+ + + + [...]
--- OUTSIDE RECORDS SUMMARY | ~2019-03-02 | XMS | Encounter Summary ---
Demographics + + + | Address | [address] | | | [place] [address] | + + + | Home Phone | | + + + | Preferred Language | Unknown | + + + | Marital Status | | + + + | Gnosticism Affiliation | Unknown | + + + | Race | Unknown | + + + | Ethnic Group | Unknown | + + + Author + + + | Author | [facility] | | | and [place] | + + + | Organization | [facility] | | | and [place] [...] Team Providers + +------+ + | Care Corn Grinder Name | Role | Phone | + +------+ + PCP | Unavailable | + +------+ + Encounter Details +--------+ + + + + | Date | Type | Department | Care Team | Description | +--------+ + + + + | 06/08/ | Hospital | [facility] | Marvin Johnston, | | | 2015 | Encounter | HOSPITAL BUSINESS | MD 2010 | | | | | OFFICE [address] | [place] | | | | | [place] | [address] | | | | | [address] | [phone] | | | | | [phone] | | | +--------+ + + + [...] + +--------+ + + + | XR CHEST 2 VIEWS | Routin | 06/09/2015 | | Results for this | | | e | 4:49 PM | | procedure are in the | | | | PDT | | results section. | + +--------+ + + + documented in this encounter Results XR Chest 2 VW (06/09/2015 4:49 PM PDT) + + | Specimen | + + | | + + + + + | Narrative | Performed At | + + + | ORIGINAL PA AND LATERAL CHEST: HISTORY: | | | Firefighting physical exam. FINDINGS: The lungs are clear. No | | | pleural effusion. No pneumothorax. Cardiomediastinal silhouette is | | | normal. No acute bone process. IMPRESSION: Normal. D: | | | 06/09/15 Read By: KERRIE RAMIREZ MD | | | Released By: KERRIE RAMIREZ MD Date: 06/10/2015 13:35 | | + + + + + | Procedure Note | + + | Ramón, Rad Results In - 01/17/2017 10:07 PM PST ORIGINAL PA AND LATERAL CHEST: | | HISTORY:Firefighting physical exam. FINDINGS:The lungs are clear. No pleural effusion. | | No pneumothorax. Cardiomediastinal silhouette is normal. No acute bone process. | | IMPRESSION:Normal. Job#: [id number] Read By: KERRIE RAMIREZ MD Released | | By: KARUNA JEFFREYate: 06/10/2015 13:35 | | | |HISTORY: | |Firefighting physical exam. | | | |FINDINGS: | |The lungs are clear. No pleural effusion. No pneumothorax. Cardiomediastinal silhouette is normal. No acute bone process. | | | |IMPRESSION: | |Normal. | | | | | | | | | |Read By: KERRIE RAMIREZ MD | | | |Released By: KERRIE RAMIREZ MD | |Date: 06/10/2015 13:35 | | | | | + + documented in this encounter Visit Diagnoses Not on filedocumented in this encounter"
--- OUTSIDE RECORDS SUMMARY | ~2019-03-02 | XMS | Encounter Summary ---
Demographics + + + | Address | [address] | | | [place] [address] | + + + | Home Phone | | + + + | Preferred Language | Unknown | + + + | Marital Status | | + + + | Faith Affiliation | Unknown | + + + | Race | Unknown | + + + | Ethnic Group | Unknown | + + + Author + + + | Author | [facility] | | | and [place] | + + + | Organization | [facility] | | | and [place] [...] Team Providers + +------+ + | Care Wood Club Neck Whipper Name | Role | Phone | + +------+ + PCP | Unavailable | + +------+ + Encounter Details +--------+ + + + + | Date | Type | Department | Care Team | Description | +--------+ + + + + | 11/28/ | Hospital | [facility] | Nikki, | | | 2017 | Encounter | HOSPITAL OBSTETRICS | Brunilda Walker NP [address] | | | | | [address] | [address] | | | | | [place], [place] | [place], [place] | | | | | [address] | [address] | | | | | [phone] | [phone] | | | | | | | [...]
--- OUTSIDE RECORDS SUMMARY | ~2019-03-02 | XMS | Encounter Summary ---
Demographics + + + | Address | [address] [place] | | | [place] [address] | + + + | Home Phone | | + + + | Preferred Language | Unknown | + + + | Marital Status | | + + + | Bahai Affiliation | Unknown | + + + | Race | Unknown | + + + | Ethnic Group | Unknown | + + + Author + + + | Author | [facility] | | | and [place] | + + + | Organization | [facility] | [...] Team Providers + +------+ + | Care Housekeeping Aid Name | Role | Phone | + +------+ + PCP | Unavailable | + +------+ + Encounter Details +--------+ + + + + | Date | Type | Department | Care Team | Description | +--------+ + + + + | 06/29/ | Hospital | [facility] | Liyah Miranda MD | | | 2017 | Encounter | HOSPITAL OBSTETRICS | [address] | | | | | [address] | [place], [place] | | | | | [place], [place] | [address] | | | | | [address] | | | | | | [phone] | | | +--------+ + + + [...]
--- OUTSIDE RECORDS SUMMARY | ~2019-03-02 | XMS | Encounter Summary ---
Demographics + + + | Address | [address] | | | [place] [address] | + + + | Home Phone | | + + + | Preferred Language | Unknown | + + + | Marital Status | | + + + | Anabaptist Affiliation | Unknown | + + + | Race | Unknown | + + + | Ethnic Group | Unknown | + + + Author + + + | Author | [facility] | | | and [place] | + + + | Organization | [facility] | | | and [place] | [...] Team Providers + +------+ + | Care Internet Systems Administrator Name | Role | Phone | + [...] | | | [place], [place] | [address] | | | | | [address] | | | | | | [phone] | | | +--------+ + + + [...]
--- OUTSIDE RECORDS SUMMARY | ~2019-03-02 | XMS | Encounter Summary ---
Demographics + + + | Address | [address] | | | [place] [address] | + + + | Home Phone | | + + + | Preferred Language | Unknown | + + + | Marital Status | | + + + | Voodoo Affiliation | Unknown | + + + | Race | Unknown | + + + | Ethnic Group | Unknown | + + + Author + + + | Author | [facility] | | | and [place] | + + + | Organization | [facility] | | | and [...] Team Providers + +------+ + | Care Customs And Border Protection Inspector Name | Role | Phone | [...] | | | [place], [place] | [address] | | | | | [address] | | | | | | [phone] | | | +--------+ + + + [...]
--- OUTSIDE RECORDS SUMMARY | ~2019-03-02 | XMS | Encounter Summary ---
Demographics + + + | Address | [address] [place] | | | [place] [address] | + + + | Home Phone | | + + + | Preferred Language | Unknown | + + + | Marital Status | | + + + | Baptism Affiliation | Unknown | + + + | Race | Unknown | + + + | Ethnic Group | Unknown | + + + Author + + + | Author | [facility] | | | and [place] | + + + | Organization | [facility] | | | and [place] [...] Team Providers + +------+ + | Care Crematory Operator Name | Role | Phone | + +------+ + PCP | Unavailable | + +------+ + Encounter Details +--------+ + + + + | Date | Type | Department | Care Team | Description | +--------+ + + + + | 03/31/ | Hospital | [facility] | Liyah Miranda MD | | | 2016 | Encounter | HOSPITAL XRAY [address] | [address] | | | | [address] | [place], [place] | | | | | [place], [place] | [address] | | | | | [address] | | | | | | [phone] | | | +--------+ + + + [...] | + +--------+ + + + | US OB 14 + WEEKS | Routin | 03/31/2016 | | Results for this | | SINGLE OR FIRST | e | 2:43 PM | | procedure are in the | | GESTATION | | PST | | results section. | + +--------+ + + + documented in this encounter Results US OB 14 + Week Singl or First Gestation (03/31/2016 2:43 PM PST) + + | Specimen | + + | | + + + + + | Narrative | Performed At | + + + | EXAMINATION: ECHO OB COMPLETE>20 WKS HISTORY: dates & anatomy | | | COMPARISON STUDY: None FINDINGS: Single intrauterine | | | gestation cephalic in position. Estimated age based on somatic | | | measurements is20 weeks 3 days. Biparietal diameter is 20 weeks 5 | | | days. 79%. Head circumference is 20 weeks 4 days. 68%. | | | Abdominal circumference is 20 weeks 3 days. 57%. Femur length is | | | 20 weeks 0 days. 44%. Estimated weight is 342 g. | | | position is cephalic. The placenta is anterior. Cervical | | | length transabdominal bladder full is 4.2 cm. Subjectively normal | | | volume of amniotic fluid is demonstrated. The ventricles are not | | | dilated. No posterior fossa cyst is seen. The cerebellum appears | | | within normal limits. No evidence of spinal dysraphism. Nose lips | | | view is normal. Four-chamber view of the heart is normal. Heart | | | rate of 144 beats per minute is captured. The diaphragm is intact. | | | Fluid filled stomach and bladder are present below the diaphragm. | | | Three-vessel cord is present. The cord insertion is normal. The | | | kidneys appear within normal limits.. IMPRESSION: Single | | | intrauterine gestation with estimated age of 20 weeks 3 days. | | | Anatomic survey is normal. JOB #: [id number] Digitally Released | | | by: Ventura Phillips Read By: VENTURA PHILLIPS MD Date: | | | 03/31/2016 16:58 | | + + + + + | Procedure Note | + + | Ramón, Rad Results In - 03/22/2017 11:32 AM PST EXAMINATION: | | ECHO OB COMPLETE>20 WKS | | | | HISTORY: | | dates & anatomy | | | | COMPARISON STUDY: | | None | | | | FINDINGS: | | Single intrauterine gestation cephalic in position. | | | | Estimated age based on somatic measurements is20 weeks 3 days. | | | | Biparietal diameter is 20 weeks 5 days. 79%. | | | | Head circumference is 20 weeks 4 days. 68%. | | | | Abdominal circumference is 20 weeks 3 days. 57%. | | | | Femur length is 20 weeks 0 days. 44%. | | | | Estimated weight is 342 g. | | | | position is cephalic. | | | | The placenta is anterior. | | | | Cervical length transabdominal bladder full is 4.2 cm. | | | | Subjectively normal volume of amniotic fluid is demonstrated. | | | | The ventricles are not dilated. No posterior fossa cyst is seen. The | | cerebellum appears within normal limits. No evidence of spinal dysraphism. | | Nose lips view is normal. | | | | Four-chamber view of the heart is normal. Heart rate of 144 beats per minute | | is captured. The diaphragm is intact. | | | | Fluid filled stomach and bladder are present below the diaphragm. | | Three-vessel cord is present. The cord insertion is normal. The | | kidneys appear within normal limits.. | | | | IMPRESSION: | | Single intrauterine gestation with estimated age of 20 weeks 3 days. Anatomic | | survey is normal. | | | | | | JOB #: [id number] | | Digitally Released by: Ventura Phillips | | | | | | Read By: VENTURA PHILLIPS MD | | Date: 03/31/2016 16:58 | | | + + documented in this encounter Visit Diagnoses Not on filedocumented in this encounter"
--- OUTSIDE RECORDS SUMMARY | ~2019-03-02 | XMS | Encounter Summary ---
Demographics + + + | Address | [address] | | | [place] [address] | + + + | Home Phone | | + + + | Preferred Language | Unknown | + + + | Marital Status | | + + + | Samaritan Affiliation | Unknown | + + + | Race | Unknown | + + + | Ethnic Group | Unknown | + + + Author + + + | Author | [facility] | | | and [place] | + + + | Organization | [facility] | | | and [...] Team Providers + +------+ + | Care Wool Cleaner Name | Role | Phone | + +------+ + PCP | Unavailable | + +------+ + Encounter Details +--------+ + + + + | Date | Type | Department | Care Team | Description | +--------+ + + + + | 08/11/ | Hospital | [facility] | Liyah Miranda MD | | | 2017 | Encounter | HOSPITAL THERAPY PT | [address] | | | | | [address] | [place], [place] | | | | | [place], [place] | [address] | | | | | [address] | | | | | | [phone] | | | +--------+ + + + [...]
--- OUTSIDE RECORDS SUMMARY | ~2019-03-02 | XMS | Encounter Summary ---
Demographics + + + | Address | [address] | | | [place] [address] | + + + | Home Phone [...] [facility] | | | and [place] | [...] Team Providers + +------+ + | Care Comparator Operator Name | Role | Phone | + +------+ + PCP | Unavailable | + +------+ + Encounter Details +--------+ + + + + | Date | Type | Department | Care Team | Description | +--------+ + + + + | 05/22/ | Hospital | [facility] | Liyah Miranda MD | | | 2016 | Encounter | HOSPITAL LABORATORY | [address] | | | | | [address] | [place], [place] | | | | | [place], [place] | [address] | | | | | [address] | | | | | | [phone] | | | +--------+ + + + [...] + | CBC W/AUTO | Routin | 05/22/2016 | | Results for this | | DIFFERENTIAL | e | 7:13 AM | | procedure are in the | | | | PDT | | results section. | + +--------+ + + + | GLUCOSE,1HR | Routin | 05/22/2016 | | Results for this | | | e | 7:13 AM | | procedure are in the | | | | PDT | | results section. | + +--------+ + + + documented in this encounter Results GLUCOSE,1HR (05/22/2016 7:13 AM PDT) + +-------+ + + + | Component | Value | Ref Range | Performed | Pathologist | | | | | At | Signature | + +-------+ + + + | Glucose, | 109 | mg/dL | EXTERNAL | | | 1Hr PP | | | LAB | | + +-------+ + + + + + | Specimen | + + | | + + + +---------+ + + | Performing | Address | City/State/Zipcode | Phone Number | | Organization | | | | + +---------+ + + | EXTERNAL LAB | | | | + +---------+ + + CBC w/ Auto Differential (05/22/2016 7:13 AM PDT) + +-------+ + + + | Component | Value | Ref Range | Performed | Pathologist | | | | | At | Signature | + +-------+ + + + | WBC | 10.2 | 4.3 - 10.4 | EXTERNAL | | | | | 1000/mm3 | LAB | | + +-------+ + + + | RBC | 3.43 | 4.12 - 5.30 | EXTERNAL | | | | | mil/mm3 | LAB | | + +-------+ + + + | HGB, | 11.8 | 12.4 - 15.7 | EXTERNAL | | | External | | g/dL | LAB | | + +-------+ + + + | HCT, | 33.6 | 37.7 - 47.0 % | EXTERNAL | | | External | | | LAB | | + +-------+ + + + | MCV | 98 | 82 - 97 fl | EXTERNAL | | | | | | LAB | | + +-------+ + + + | MCH | 34.4 | 27.1 - 32.3 pg | EXTERNAL | | | | | | LAB | | + +-------+ + + + | MCHC | 35.1 | 32.0 - 36.9 | EXTERNAL | | | | | g/dL | LAB | | + +-------+ + + + | RDW-CV | 11.8 | <=17.0 % | EXTERNAL | | | | | | LAB | | + +-------+ + + + | RDW-SD | 42.4 | 34.0 - 57.0 fL | EXTERNAL | | | | | | LAB | | + +-------+ + + + | Platelet | 175 | 150 - 450 | EXTERNAL | | | Count | | 1000/mm3 | LAB | | | Plasma | | | | | + +-------+ + + + | MPV | 9.9 | 9.4 - 12.3 FL | EXTERNAL | | | | | | LAB | | + +-------+ + + + | % Segmented | 75.6 | 42.0 - 76.0 % | EXTERNAL | | | | | | LAB | | | Neutrophils | | | | | + +-------+ + + + | % | 17.1 | 20.0 - 40.0 % | EXTERNAL | | | Lymphocytes | | | LAB | | + +-------+ + + + | % Monocytes | 4.4 | 3.0 - 13.0 % | EXTERNAL | | | | | | LAB | | + +-------+ + + + | % | 2.1 | 0.0 - 7.0 % | EXTERNAL | | | Eosinophils | | | LAB | | + +-------+ + + + | % Basophils | 0.4 | 0.0 - 2.0 % | EXTERNAL | | | | | | LAB | | + +-------+ + + + | % Immature | 0.4 | 0.0 - 0.5 % | EXTERNAL | | | Granulocyte | | | LAB | | | s | | | | | + +-------+ + + + | % nRBC | 0 | 0.0 - 0.2 /100 | EXTERNAL | | | | | WBC | LAB | | + +-------+ + + + | Absolute | 7.74 | 2.50 - 8.50 | EXTERNAL | | | Neutrophils | | 1000/mm3 | LAB | | + +-------+ + + + | Absolute | 1.75 | 1.00 - 3.80 | EXTERNAL | | | Lymphocytes | | 1000/mm3 | LAB | | + +-------+ + + + | Absolute | 0.45 | 0.00 - 0.80 | EXTERNAL | | | Monocytes | | 1000/mm3 | LAB | | + +-------+ + + + | Absolute | 0.22 | 0.00 - 0.70 | EXTERNAL | | | Eosinophils | | 1000/mm3 | LAB | | + +-------+ + + + | Absolute | 0.04 | 0.00 - 0.20 | EXTERNAL | | | Basophils | | 1000/mm3 | LAB | | + +-------+ + + + | Absolute | 0.04 | 0.00 - 0.15 | EXTERNAL | [...]
--- OUTSIDE RECORDS SUMMARY | ~2019-03-02 | XMS | Encounter Summary ---
Demographics + + + | Address | [address] | | | [place] [address] | + + + | Home Phone | | + + + | Preferred Language | Unknown | + + + | Marital Status | | + + + | Adventist Affiliation | Unknown | + + + | Race | Unknown | + + + | Ethnic Group | Unknown | + + + Author + + + | Author | [facility] | | | and [place] | + + + | Organization | [facility] | [...] Team Providers + +------+ + | Care Grease Maker Name | Role | Phone | + +------+ + PCP | Unavailable | + +------+ + Encounter Details +--------+ + + + + | Date | Type | Department | Care Team | Description | +--------+ + + + + | 05/26/ | Hospital | [facility] | Shane Rhodes, | | | 2016 | Encounter | [facility] | DO [address] | | | | | [address] | [place], [place] | | | | | [place], [place] | [address] | | | | | [address] | [phone] | | | | | [phone] | | | +--------+ + + + [...]
--- OUTSIDE RECORDS SUMMARY | ~2019-03-02 | XMS | Encounter Summary ---
Demographics + + + | Address | [address] | | | [place] [address] | + + + | Home Phone | | + + + | Preferred Language | Unknown | + + + | Marital Status | | + + + | Gnosticist Affiliation | Unknown | + + + | Race | Unknown | + + + | Ethnic Group | Unknown | + + + Author + + + | Author | [facility] | | | and [place] | + + + | Organization | [facility] | | [...] Team Providers + +------+ + | Care Ruling Machine Feeder Name | Role | Phone | + +------+ + PCP | Unavailable | + +------+ + Encounter Details +--------+ + + + + | Date | Type | Department | Care Team | Description | +--------+ + + + + | 04/26/ | Hospital | [facility] | Marvin Johnston, | | | 2015 | Encounter | HOSPITAL XRAY [address] | | | | | [address] | [place] | | | | | [place] | [address] | | | | | [address] | [phone] | | | | | [phone] | | | +--------+ + + + [...] | + +--------+ + + + | MRI UPPER EXTREMITY | Routin | 04/26/2015 | | Results for this | | JOINT LEFT WO | e | 4:53 PM | | procedure are in the | | CONTRAST | | PST | | results section. | + +--------+ + + + | MRI LOWER EXTREMITY | Routin | 04/26/2015 | | Results for this | | JOINT LEFT WO | e | 4:53 PM | | procedure are in the | | CONTRAST | | PST | | results section. | + +--------+ + + + documented in this encounter Results MRI Upper Extremity Joint LT wo Con (04/26/2015 4:53 PM PST) + + | Specimen | + + | | + + + + + | Narrative | Performed At | + + + | ORIGINAL MRI OF THE LEFT SHOULDER WITHOUT CONTRAST: | | | HISTORY: Shoulder pain. Trauma. TECHNIQUE: Multiplanar, | | | multisequence MRI of the shoulder was performed without contrast. | | | COMPARISON: Radiograph March 29, 2015. FINDINGS: There is mild | | | edema of the distal clavicle. The acromioclavicular joint is grossly | | | unremarkable. Trace fluid is present at the subacromial and | | | subdeltoid bursa. Supraspinatus tendon is intact. Infraspinatus | | | tendon is intact. Teres minor tendon is intact. Subscapularis tendon | | | is intact. Long head of biceps tendon is intact. Biceps labral | | | complex has abnormal signal intensity, suggesting a SLAP II tear. | | | Inferior anterior labrum is abnormal in signal intensity. Complete | | | evaluation is limited on this nonarthrogram MR. Labral tear is | | | suspected. Glenohumeral cartilage is grossly unremarkable. Muscle | | | signal intensity is normal. IMPRESSION: 1. Findings suggestive of | | | labral injury. Consider MR arthrogram for further evaluation. 2. | | | Mild subacromial/subdeltoid bursitis. 3. Artifact versus mild edema | | | of the distal clavicle. Correlation with pain is recommended. D: | | | 04/27/2015 Read By: KERRIE RAIMREZ, | | | Released By: KERRIE RAMIREZ MD Date: 04/27/2015 18:05 | | | | | + + + + + | Procedure Note | + + | Ramón, Rad Results In - 01/17/2017 9:42 PM PST ORIGINAL MRI OF THE LEFT SHOULDER | | WITHOUT CONTRAST: HISTORY:Shoulder pain. Trauma. TECHNIQUE:Multiplanar, multisequence | | MRI of the shoulder was performed without contrast. COMPARISON:Radiograph March 29, | | 2015. FINDINGS:There is mild edema of the distal clavicle. The acromioclavicular joint | | is grossly unremarkable.Trace fluid is present at the subacromial and subdeltoid | | bursa.Supraspinatus tendon is intact.Infraspinatus tendon is intact.Teres minor tendon | | is intact.Subscapularis tendon is intact.Long head of biceps tendon is intact.Biceps | | labral complex has abnormal signal intensity, suggesting a SLAP II tear.Inferior | | anterior labrum is abnormal in signal intensity. Complete evaluation is limited on this | | nonarthrogram MR. Labral tear is suspected.Glenohumeral cartilage is grossly | | unremarkable.Muscle signal intensity is normal. IMPRESSION:1. Findings suggestive of | | labral injury. Consider MR arthrogram for further evaluation.2. Mild | | subacromial/subdeltoid bursitis.3. Artifact versus mild edema of the distal clavicle. | | Correlation with pain is recommended. Job#: [id number] Read By: KERRIE Gore | | MD ASHLEY Released By: KARUNA JEFFREYate: 04/27/2015 18:05 | |There is mild edema of the distal clavicle. The acromioclavicular joint is grossly unremark able. | |Trace fluid is present at the subacromial and subdeltoid bursa. | |Supraspinatus tendon is intact. | |Infraspinatus tendon is intact. | |Teres minor tendon is intact. | |Subscapularis tendon is intact. | |Long head of biceps tendon is intact. | |Biceps labral complex has abnormal signal intensity, suggesting a SLAP II tear. | |Inferior anterior labrum is abnormal in signal intensity. Complete evaluation is limited on this nonarthrogram MR. Labral tear is suspected. | |Glenohumeral cartilage is grossly unremarkable. | |Muscle signal intensity is normal. | | | |IMPRESSION: | |1. Findings suggestive of labral injury. Consider MR arthrogram for further evaluation. | |2. Mild subacromial/subdeltoid bursitis. | |3. Artifact versus mild edema of the distal clavicle. Correlation with pain is recommended . | | | | | | | | | | | | | | | |Read By: KERRIE RAMIREZ MD | | | |Released By: KERRIE RAMIREZ MD | |Date: 04/27/2015 18:05 | | | | | + + MRI Lower Extremity Joint Left wo C (04/26/2015 4:53 PM PST) + + | Specimen | + + | | + + + + + | Narrative | Performed At | + + + | ORIGINAL MRI OF THE LEFT KNEE WITHOUT CONTRAST: | | | HISTORY: Knee pain after trauma. TECHNIQUE: Multiplanar, | | | multisequence MRI of the knee was performed without contrast. | | | COMPARISON: Radiograph March 29, 2015. FINDINGS: The lateral | | | meniscus is intact. The medial meniscus is intact. Posterior | | | cruciate ligament is intact. Anterior cruciate ligament is intact. | | | Extensor mechanism is intact. The medial collateral ligament is | | | intact. Lateral collateral ligamentous complex is intact. Medial and | | | lateral patellar retinaculum are intact. There is mild edema of | | | Hoffa's fad pad superolaterally abutting the undersurface of the | | | patella and retinaculum. The underlying bone is normal in signal | | | intensity. Patellofemoral cartilage is intact. Medial and lateral | | | compartment cartilage is intact. There is trace fluid within | | | popliteal bursa. There is trace joint effusion. There is normal | | | muscle signal intensity. IMPRESSION: Posttraumatic edema of the | | | Hoffa's fat pad. Hoffa's disease is not excluded. | | | Read By: KERRIE RAMIREZ MD | | | Released By: KERRIE RAMIREZ MD Date: 04/27/2015 18:05 | | + + + + + | Procedure Note | + + | Ricci Melgar In - 01/17/2017 9:42 PM PST ORIGINAL MRI OF THE LEFT KNEE | | WITHOUT CONTRAST: HISTORY:Knee pain after trauma. TECHNIQUE:Multiplanar, multisequence | | MRI of the knee was performed without contrast. COMPARISON:Radiograph March 29, 2015. | | FINDINGS:The lateral meniscus is intact.The medial meniscus is intact.Posterior cruciate | | ligament is intact.Anterior cruciate ligament is intact.Extensor mechanism is | | intact.The medial collateral ligament is intact.Lateral collateral ligamentous complex | | is intact.Medial and lateral patellar retinaculum are intact.There is mild edema of | | Hoffa's fad pad superolaterally abutting the undersurface of the patella and | | retinaculum. The underlying bone is normal in signal intensity.Patellofemoral cartilage | | is intact.Medial and lateral compartment cartilage is intact.There is trace fluid | | within popliteal bursa. There is trace joint effusion.There is normal muscle signal | | intensity. IMPRESSION:Posttraumatic edema of the Hoffa's fat pad. Hoffa's disease is | | not excluded. Job#: [id number] Read By: KERRIE RAMIREZ MD Released By: | | KERRIE RAMIREZ MDDate: 04/27/2015 18:05 | |FINDINGS: | |The lateral meniscus is intact. | |The medial meniscus is intact. | |Posterior cruciate ligament is intact. | |Anterior cruciate ligament is intact. | |Extensor mechanism is intact. | |The medial collateral ligament is intact. | |Lateral collateral ligamentous complex is intact. | |Medial and lateral patellar retinaculum are intact. | |There is mild edema of Hoffa's fad pad superolaterally abutting the undersurface of the pat brenda and retinaculum. The underlying bone is normal in signal intensity. | |Patellofemoral cartilage is intact. | |Medial and lateral compartment cartilage is intact. | |There is trace fluid within popliteal bursa. There is trace joint effusion. | |There is normal muscle signal intensity. | | | |IMPRESSION: | |Posttraumatic edema of the Hoffa's fat pad. Hoffa's disease is not excluded. | | | | | | | | | | | | | | | |Read By: KERRIE RAMIREZ MD | | | |Released By: KERRIE RAMIREZ MD | |Date: 04/27/2015 18:05 | | | | | + + documented in this encounter Visit Diagnoses Not on filedocumented in this encounter"
--- OUTSIDE RECORDS SUMMARY | ~2019-03-02 | XMS | Encounter Summary ---
Demographics + + + | Address | [address] | | | [place] [address] | + + + | Home Phone | | + + + | Preferred Language | Unknown | + + + | Marital Status | | + + + | Faith Affiliation | Unknown | + + + | Race | Unknown | + + + | Ethnic Group | Unknown | + + + Author + + + | Author | [facility] | | | and [place] | + + + | Organization | [facility] | | | and [...] Team Providers + +------+ + | Care Client Liaison Name | Role | Phone | + +------+ + PCP | Unavailable | + +------+ + Encounter Details +--------+ + + + + | Date | Type | Department | Care Team | Description | +--------+ + + + + | 08/24/ | Hospital | [facility] | Liyah Miranda MD | | | 2017 | Encounter | HOSPITAL OBSTETRICS | [address] | | | | | [address] | [place], [place] | | | | | [place], [place] | [address] | | | | | [address] | | | | | | [phone] | | | +--------+ + + + [...]
--- OUTSIDE RECORDS SUMMARY | ~2019-03-02 | XMS | Encounter Summary ---
Demographics + + + | Address | [address] | | | [place] [address] | + + + | Home Phone | | + + + | Preferred Language | Unknown | + + + | Marital Status | | + + + | Synagogue Affiliation | Unknown | + + + | Race | Unknown | + + + | Ethnic Group | Unknown | + + + Author + + + | Author | [facility] | | | and [place] | + + + | Organization | [facility] | | | and [...] Team Providers + +------+ + | Care Program Paraprofessional Name | Role | Phone | + [...] | | | [place], [place] | [address] | | | | | [address] | | | | | | [phone] | | | +--------+ + + + [...] | + +--------+ + + + | HIV 1 AND 2 AND O | Routin | 01/11/2016 | | Results for this | | AB, REFLEX CONFIRM | e | 10:23 AM | | procedure are in the | | | | PDT | | results section. | + +--------+ + + + | TRIPLE | Routin | 01/11/2016 | | Results for this | | SCREEN | e | 10:23 AM | | procedure are in the | | | | PDT | | results section. | + +--------+ + + + | CBC W/AUTO | Routin | 01/11/2016 | | Results for this | | DIFFERENTIAL | e | 10:23 AM | | procedure are in the | | | | PDT | | results section. | + +--------+ + + + documented in this encounter Results Triple Screen (01/11/2016 10:23 AM PDT) + + + + + + | Component | Value | Ref Range | Performed | Pathologist | | | | | At | Signature | + + + + + + | Rubella IgG | IMMUNE | IMMUNE | EXTERNAL | | | Ab | | | LAB | | + + + + + + | Hepatitis B | NEGATIVE | NEGATIVE | EXTERNAL | | | Surface Ag | | | LAB | | + + + + + + | Treponema | NON REACTIVE | NON REACTIVE | EXTERNAL | | | Pallidum Ab | | | LAB | | + + + + + + + + | Specimen | + + | | + + + +---------+ + + | Performing | Address | City/State/Zipcode | Phone Number | | Organization | | | | + +---------+ + + | EXTERNAL LAB | | | | + +---------+ + + HIV 1 and 2 and O Ab, Reflex Confirm (01/11/2016 10:23 AM PDT) + + + + + + | Component | Value | Ref Range | Performed | Pathologist | | | | | At | Signature | + + + + + + | HIV 1/2 Ab | NEGATIVE | NEGATIVE | EXTERNAL | | | and P24 Ag | | | LAB | | + + + + + + + + | Specimen | + + | | + + + +---------+ + + | Performing | Address | City/State/Zipcode | Phone Number | | Organization | | | | + +---------+ + + | EXTERNAL LAB | | | | + +---------+ + + CBC w/ Auto Differential (01/11/2016 10:23 AM PDT) + +-------+ + + + | Component | Value | Ref Range | Performed | Pathologist | | | | | At | Signature | + +-------+ + + + | WBC | 10.1 | 4.3 - 10.4 | EXTERNAL | | | | | 1000/mm3 | LAB | | + +-------+ + + + | RBC | 4.05 | 4.12 - 5.30 | EXTERNAL | [...] +-------+ + + + | MCV | 89 | 82 - 97 fl | EXTERNAL | | | | | | LAB | | + +-------+ + + + | MCH | 31.1 | 27.1 - 32.3 pg | EXTERNAL | | | | | | LAB | | + +-------+ + + + | MCHC | 34.9 | 32.0 - 36.9 | EXTERNAL | | | | | g/dL | LAB | | + +-------+ + + + | RDW-CV | 13 | <=17.0 % | EXTERNAL | | | | | | LAB | | + +-------+ + + + | RDW-SD | 42.5 | 34.0 - 57.0 fL | EXTERNAL | | | | | | LAB | | + +-------+ + + + | Platelet | 247 | 150 - 450 | EXTERNAL | | | Count | | 1000/mm3 | LAB | | | Plasma | | | | | + +-------+ + + + | MPV | 10 | 9.4 - 12.3 FL | EXTERNAL | | | | | | LAB | | + +-------+ + + + | % Segmented | 72.7 | 42.0 - 76.0 % | EXTERNAL | | | | | | LAB | | | Neutrophils | | | | | + +-------+ + + + | % | 20.4 | 20.0 - 40.0 % | EXTERNAL | | | Lymphocytes | | | LAB | | + +-------+ + + + | % Monocytes | 5.4 | 3.0 - 13.0 % | EXTERNAL | | | | | | LAB | | + +-------+ + + + | % | 0.8 | 0.0 - 7.0 % | EXTERNAL | | | Eosinophils | | | LAB | | + +-------+ + + + | % Basophils | 0.4 | 0.0 - 2.0 % | EXTERNAL | | | | | | LAB | | + +-------+ + + + | % Immature | 0.3 | 0.0 - 0.5 % | EXTERNAL | | | Granulocyte | | | LAB | | | s | | | | | + +-------+ + + + | % nRBC | 0 | 0.0 - 0.2 /100 | EXTERNAL | | | | | WBC | LAB | | + +-------+ + + + | Absolute | 7.34 | 2.50 - 8.50 | EXTERNAL | | | Neutrophils | | 1000/mm3 | LAB | | + +-------+ + + + | Absolute | 2.06 | 1.00 - 3.80 | EXTERNAL | | | Lymphocytes | | 1000/mm3 | LAB | | + +-------+ + + + | Absolute | 0.55 | 0.00 - 0.80 | EXTERNAL | | | Monocytes | | 1000/mm3 | LAB | | + +-------+ + + + | Absolute | 0.08 | 0.00 - 0.70 | EXTERNAL | | | Eosinophils | | 1000/mm3 | LAB | | + +-------+ + + + | Absolute | 0.04 | 0.00 - 0.20 | EXTERNAL | | | Basophils | | 1000/mm3 | LAB | | + +-------+ + + + | Absolute | 0.03 | 0.00 - 0.15 | EXTERNAL | [...] NO | | EXTERNAL | | | REVIEW | | | LAB | | + [...]
--- OUTSIDE RECORDS SUMMARY | ~2019-03-02 | XMS | Encounter Summary ---
Demographics + + + | Address | [address] | | | [place] [address] | + + + | Home Phone | | + + + | Preferred Language | Unknown | + + + | Marital Status | | + + + | Confucianism Affiliation | Unknown | + + + | Race | Unknown | + + + | Ethnic Group | Unknown | + + + Author + + + | Author | [facility] | | | and [place] | + + + | Organization | [facility] | | | and [place] [...] Team Providers + +------+ + | Care Education Dean Name | Role | Phone | + +------+ + PCP | Unavailable | + +------+ + Encounter Details +--------+ + + + + | Date | Type | Department | Care Team | Description | +--------+ + + + + | 10/16/ | Hospital | [facility] | Nikki, | | | 2017 | Encounter | HOSPITAL OBSTETRICS | Brunilda Walker NP [address] | | | | | [address] | [address] | | | | | [place], [place] | [place], [place] | | | | | [address] | [address] | | | | | [phone] | [phone] | | | | | | | [...]
[~2019-03-02 10:40] MED LIST: PRENATAL 19 TA1 EAC1 PO; PROBIOTIC1 EAC1 PO
--- NOTE | 2019-03-02 12:56 | PR ---
[facility] [address] [place], [place] [address] Signed Progress Notes IP Datetime Report Generated by CPN: 03/02/2019 12:55 PROGRESS NOTES: [id number] Impression: Normal progression of labor; Reassuring heart rate Procedures: Artificial ROM; Sterile Vag Exam Plan: Continue present management; Anticipate Vaginal Delivery Informed Consent Obtain: Vaginal Delivery VITAL SIGNS: [id number] Vital Signs: Reviewed; Within Normal Limits EXAM: [id number] Dilatation: 9.0 Effacement: 100 Station: -1 Uterine Contractions: q3-4 min MEMBRANES: [id number] Membrane Status: Bulging Amniotic Fluid Color: Meconium, Light ROM Note: After informed consent and verted assurred to be well applied, AROM easily performed for moderate amount meconium stained fluid Comments: Pt seen and examined. Comfortable w/ epidural. AROM performed without difficulty for meconium stained fluid. Anticipate soon. Reviewed course of labor w/ pt Fetus A: [id number] FHR Baseline: 120 Variability: Moderate 6-25bpm Accelerations: 15X15 Decelerations: Early FHR Category: Category I Presentation: Vertex Comments on Fetus A: No evidence of metabolic acidosis Fetus B: [id number] Signing Physician: Jeni Bush DO Copies: ~ *Electronically Signed* 03/02/19 9479 JENI BUSH DO PATIENT NAME: JONY COTTON PROGRESS NOTE DATE OF : 86 PHYSICIAN: JENI BUSH DO RPT #: [id number] REPORT IS CONFIDENTIAL AND NOT TO BE RELEASED WITHOUT AUTHORIZATION
--- NOTE | 2019-03-02 16:01 | PR ---
[facility] [address] [facility] [place] [address] Signed PP Progress Notes Datetime Report Generated by CPN: 03/02/2019 16:01 SUBJECTIVE: [id number] Pain: Within normal limits Pain Comments: Bleeding Nausea/Vomiting: Denies Flatus: No Bowel Movement: No Vital Signs: [id number] Vital Signs: Reviewed; Within Normal Limits EXAM: [id number] Cardiovascular: Normal Respiratory: Normal Abdomen/Uterus: Abnormal Lochia: Abnormal Vulva/Perineum: Normal Breasts: Not Done CVA Tenderness: Normal Extremities: Normal Exam Comments: See below IMPRESSION/PLAN/PROCEDURES: [id number] Other Impression: PP Hemorrhage Progress Notes: Pt seen and examined. Signing Physician: Jeni Bush DO Copies: ~ *Electronically Signed* 03/02/19 1601 JENI BUSH DO PATIENT NAME: JONY COTTON PROGRESS NOTE DATE OF : 86 PHYSICIAN: JENI BUSH DO RPT #: [id number] REPORT IS CONFIDENTIAL AND NOT TO BE RELEASED WITHOUT AUTHORIZATION
--- NOTE | 2019-03-03 08:34 | PR ---
[facility] [address] [place], [place] [address] Signed PP Progress Notes Datetime Report Generated by CPN: 03/03/2019 08:34 SUBJECTIVE: [id number] Pain: Within normal limits Pain Comments: Bleeding Nausea/Vomiting: Denies Flatus: Yes Bowel Movement: Yes Vital Signs: [id number] Vital Signs: Reviewed; Within Normal Limits EXAM: [id number] Cardiovascular: Normal Respiratory: Normal Abdomen/Uterus: Normal Lochia: Normal Vulva/Perineum: Not Done Breasts: Not Done CVA Tenderness: Normal Extremities: Normal Incision: Not Applicable Progress: Normal Exam Comments: Fundus firm U-2 nontender IMPRESSION/PLAN/PROCEDURES: [id number] Impression: Normal progression Other Impression: PP Hemorrhage Plan: Discharge Progress Notes: Pt seen and examined. doing well. Ambulating, voiding, and tolerating full diet. Pain and lochia minimal. well. No concerns. Desires d/c home. Hgb 10.1. No lightheadedness / dizziness. Signing Physician: Jeni Bush DO Copies: ~ *Electronically Signed* 03/03/19 0834 JENI BUSH DO PATIENT NAME: JONY COTTON PROGRESS NOTE DATE OF : 87 PHYSICIAN: JENI BUSH DO RPT #: [id number] REPORT IS CONFIDENTIAL AND NOT TO BE RELEASED WITHOUT AUTHORIZATION
== END 2019-03-03 16:45 | disposition home or self-care (01) | DRG 807 ==
LOC: FBC 10:40
PROVIDERS: ADMIT Obstetrics & Gynecology
PROC: 10E0XZZ Delivery of Products of Conception, External Approach (ICD-10-PCS; principal; 2019-03-02)
PROC: 0KQM0ZZ Repair Perineum Muscle, Open Approach (ICD-10-PCS; 2019-03-02)
PROC: 10907ZC Drainage of Amniotic Fluid, Therapeutic from Products of Conception, Via Natural or Artificial Opening (ICD-10-PCS; 2019-03-02)
PROC: 00HU33Z Insertion of Infusion Device into Spinal Canal, Percutaneous Approach (ICD-10-PCS; 2019-03-02)
PROC: 3E0R3BZ Introduction of Anesthetic Agent into Spinal Canal, Percutaneous Approach (ICD-10-PCS; 2019-03-02)
DX: O99.284 Endocrine, nutritional and metabolic diseases complicating childbirth (principal); Z37.0 Single live birth; E03.9 Hypothyroidism, unspecified; Z3A.39 39 weeks gestation of pregnancy; O70.1 Second degree perineal laceration during delivery; O77.0 Labor and delivery complicated by meconium in amniotic fluid; O76 Abnormality in fetal heart rate and rhythm complicating labor and delivery; O72.1 Other immediate postpartum hemorrhage; O69.1XX0 Labor and delivery complicated by cord around neck, with compression, not applicable or unspecified; Z79.899 Other long term (current) drug therapy; Z88.5 Allergy status to narcotic agent; Z88.1 Allergy status to other antibiotic agents
CPT/HCPCS: 01960; 36415; 85027; A9270; J2590; J2795; J7121

== ENCOUNTER 2022-03-04 10:54 | Emergency (ER) | payer BC ==
[~2022-03-04] VITALS: Ht 170.2 cm; Wt 80.7 kg
[2022-03-04] MEDS ORDERED: SYNTHROID75 MCG PO (11:05)
[2022-03-04] MEDS ORDERED: AMOXICILLIN500 MG PO (11:34)
== END 2022-03-04 11:50 | disposition home or self-care (01) ==
LOC: ED 10:54
DX: O99.512 Diseases of the respiratory system complicating pregnancy, second trimester (principal); J20.9 Acute bronchitis, unspecified; Z88.1 Allergy status to other antibiotic agents; Z88.5 Allergy status to narcotic agent; Z3A.16 16 weeks gestation of pregnancy; Z20.822 Contact with and (suspected) exposure to COVID-19
CPT/HCPCS: 87502; 99284; C9803; U0003

== ENCOUNTER 2022-07-05 21:18 | Observation (INO) | payer BC ==
[~2022-07-05 21:18] MED LIST changes: +AMOXICILLIN500 MG PO; +SYNTHROID75 MCG PO
--- NOTE | 2022-07-06 21:58 | PR ---
[facility] [address] [place], [place] [address] Signed AP Progress Notes Datetime Report Generated by CPN: 07/06/2022 21:57 Chief Complaint: Fall / contractions PHYSICAL EXAM: [id number] General: Normal HEENT: Normal Neurologic: Normal Cardiovascular: Normal Respiratory: Normal Back: Normal Abdomen: Normal Physical Exam Comments: Pt just back from bathroom and denies any vaginal bleeding Impression: IUP @ 33w5d Fall contractions Cat 1 FHT Plan: Pt seen and examined. Was preparing for discharge 24 hrs after admission for obs for fall. FHT Cat 1 throughout the day and no consistent contractions until recently. Pt reports these seem unchanged from baseline. +FM. On exam, uterus soft and nontender. Discussed discharge home vs continued observation overnight. My preference would be to keep her overnight for continuous monitoring to r/u abruption. Plan d/c home tomorrow morning. Pt understands and agrees. VITAL SIGNS: [id number] Vital Signs: Reviewed EXAM: [id number] Contraction Comments: None MEMBRANES: [id number] FETUS A: [id number] FHR Baseline: 130 Variability: Moderate 6-25bpm Accelerations: 15X15 Deceleration: None FHR Category: Category I FHR Comments: No evidence of metabolic acidosis FETUS B: [id number] PROGRESS NOTES: [id number] Signing Physician: Jeni Bush DO *Electronically Signed* 07/06/22 6570 JENI BUSH (RASHID) DO PATIENT NAME: JONY COTTON PROGRESS NOTE DATE OF : 86 PHYSICIAN: JENI BUSH (JD) DO RPT #: [id number] REPORT IS CONFIDENTIAL AND NOT TO BE RELEASED WITHOUT AUTHORIZATION [address] [place] [address] Signed Copies: ~ *Electronically Signed* 07/06/222156 JENI BUSH) DO PATIENT NAME: JONY COTTON PROGRESS NOTE DATE OF : 87 PHYSICIAN: JENI BUSH (JD) DO RPT #: [id number] REPORT IS CONFIDENTIAL AND NOT TO BE RELEASED WITHOUT AUTHORIZATION
--- NOTE | 2022-07-07 08:16 | PR ---
[facility] [address] [place], [place] [address] Signed AP Progress Notes Datetime Report Generated by CPN: 07/07/2022 08:16 Chief Complaint: Fall PHYSICAL EXAM: [id number] General: Normal HEENT: Normal Neurologic: Normal Cardiovascular: Normal Respiratory: Normal Back: Normal Abdomen: Normal Physical Exam Comments: Abd nontender. Pt denies vaginal bleeding or contractions. Cat 1 tracing Impression: IUP @ 33w6d Fall Cat 1 tracing contractions resolved Plan: Discharge home. Monitor for movement / vaginal bleeding. Discussed no s/sx of abruption. F/U in office on Sunday VITAL SIGNS: [id number] Vital Signs: Reviewed EXAM: [id number] Contraction Comments: None MEMBRANES: [id number] FETUS A: [id number] FHR Baseline: 130 Variability: Moderate 6-25bpm Accelerations: 15X15 Deceleration: None FHR Category: Category I FHR Comments: No evidence of metabolic acidosis FETUS B: [id number] PROGRESS NOTES: [id number] Signing Physician: Jeni Bush DO Copies: *Electronically Signed* 07/07/22 0816 JENI BUSH (RASHID) DO PATIENT NAME: JONY COTTON PROGRESS NOTE DATE OF : 87 PHYSICIAN: JENI BUSH (JD) DO RPT #: [id number] REPORT IS CONFIDENTIAL AND NOT TO BE RELEASED WITHOUT AUTHORIZATION [address] [address] Signed ~ *Electronically Signed* 07/07/22 0816 JENI BUSH) DO PATIENT NAME: JONY COTTON PROGRESS NOTE DATE OF : 87 PHYSICIAN: JENI BUSH (JD) DO RPT #: [id number] REPORT IS CONFIDENTIAL AND NOT TO BE RELEASED WITHOUT AUTHORIZATION
== END 2022-07-07 08:30 | disposition home or self-care (01) ==
LOC: FBCO 21:18 → FBC 21:19
PROVIDERS: ADMIT Obstetrics & Gynecology; ATTEND Obstetrics & Gynecology
DX: O47.03 False labor before 37 completed weeks of gestation, third trimester (principal); Z3A.33 33 weeks gestation of pregnancy
CPT/HCPCS: 36415; 59025; 85025

== ENCOUNTER 2022-08-11 10:42 | Inpatient (IN) | payer OTHER ==
[~2022-08-11] VITALS: Ht 170.2 cm; Wt 83.9 kg
[2022-08-11 20:20] VITALS: BP 105/69
--- NOTE | 2022-08-12 08:14 | PR ---
[facility] [address] [facility] [place], [place] [address] Signed PP Progress Notes Datetime Report Generated by CPN: 08/12/2022 08:14 SUBJECTIVE: [id number] Pain: Within Normal Limits Nausea/Vomiting: Denies Flatus: Yes Bowel Movement: No Vital Signs: [id number] Vital Signs: Reviewed; Within Normal Limits Cardiovascular: Normal Respiratory: Normal Abdomen/Uterus: Normal Lochia: Normal Vulva/Perineum: Not Done Breasts: Not Done CVA Tenderness: Normal Extremities: Normal Incision: Not Applicable Progress: Normal Exam Comments: Fundus firm U-2 nontender IMPRESSION/PLAN/PROCEDURES: [id number] Impression: Normal Progression Plan: Discharge Procedures: None Progress Notes: Pt seen and examined. Doing well. Ambulating, voiding, and tolerating full diet. Pain and lochia minimal. well. No fevers, chills, or other concerns. Desires d/c home. Vasectomy for pp contraception. No other questions. Reviewed d/c instructions in detail Signing Physician: Jeni Bush DO Copies: ~ *Electronically Signed* 08/12/22813 JENI BUSH (RASHID) DO PATIENT NAME: JONY COTTON PROGRESS NOTE DATE OF : 87 PHYSICIAN: JENI BUSH) DO RPT #: [id number] REPORT IS CONFIDENTIAL AND NOT TO BE RELEASED WITHOUT AUTHORIZATION
== END 2022-08-12 17:20 | disposition home or self-care (01) | DRG 807 ==
LOC: FBCO 10:42 → FBC 14:42
PROVIDERS: ADMIT Obstetrics & Gynecology; ATTEND Obstetrics & Gynecology
PROC: 10E0XZZ Delivery of Products of Conception, External Approach (ICD-10-PCS; principal; 2022-08-11)
PROC: 10907ZC Drainage of Amniotic Fluid, Therapeutic from Products of Conception, Via Natural or Artificial Opening (ICD-10-PCS; 2022-08-11)
PROC: 3E0R3BZ Introduction of Anesthetic Agent into Spinal Canal, Percutaneous Approach (ICD-10-PCS; 2022-08-11)
PROC: 00HU33Z Insertion of Infusion Device into Spinal Canal, Percutaneous Approach (ICD-10-PCS; 2022-08-11)
PROC: 0KQM0ZZ Repair Perineum Muscle, Open Approach (ICD-10-PCS; 2022-08-11)
DX: O70.1 Second degree perineal laceration during delivery (principal); Z37.0 Single live birth; Z3A.38 38 weeks gestation of pregnancy; Z90.12 Acquired absence of left breast and nipple; Z98.82 Breast implant status; Z98.890 Other specified postprocedural states
CPT/HCPCS: 36415; 59025; 85027; 86850; 86900; 86901; A9270; G0463; J1170; J2590; J7121